=== PATIENT | female | born 1960 | race Caucasian/White ===

== ENCOUNTER 2021-10-13 20:27 | Inpatient (IN) | payer OTHER, SELFPAY ==
[~2021-10-13] VITALS: Ht 160 cm; Wt 93.4 kg
[2021-10-13 20:27] VITALS: BP_SYST 96
[2021-10-13] MEDS ORDERED: ONDANSETRON HCL 4 MG/2 ML VIAL IVP ONE (21:00)
[2021-10-13] MEDS ORDERED: NACL 0.9% 2,000 ML IV ONE (21:00)
[2021-10-13 22:21] LABS: BASOPHILS % (AUTO) 0.1 % (0.0-2.0); EOSINOPHILS % (AUTO) 0.1 % (0.0-4.0); HEMATOCRIT 41.3 % (36-48); HEMOGLOBIN 14.4 g/dL (12.0-16.0); LYMPHOCYTES # (AUTO) 0.5 K/uL (1.0-5.5); LYMPHOCYTES % (AUTO) 6.5 % (20.5-51.5); MEAN CORPUSCULAR HEMOGLOBIN 33 pg (27-31); MEAN CORPUSCULAR HGB CONC 35 % (32-36); MEAN CORPUSCULAR VOLUME 93 fL (79.0-98.0); MONOCYTES # (AUTO) 0.4 K/uL (0.0-1.0); MONOCYTES % (AUTO) 4.6 % (1.7-9.3); NEUTROPHILS # (AUTO) 7.2 K/uL (1.8-7.7); NEUTROPHILS % (AUTO) 88.7 % (40.0-70.0); PLATELET COUNT (AUTO) 185 K/uL (130-430); RED BLOOD CELL COUNT(AUTO) 4.43 MIL/uL (4.2-6.2); RED CELL DISTRIBUTION WIDTH 13.5 % (9.0-15.0); WHITE BLOOD COUNT (AUTO) 8.1 K/uL (4.8-10.8)
[2021-10-13 22:32] LABS: PROTHROMBIN TIME 10.6 SECS (9.5-12.5)
[2021-10-13 22:33] LABS: ANION GAP 8 (5-15); CALCIUM 8.4 mg/dL (8.4-11.0); CHLORIDE 104 mmol/L (98-107); GLUCOSE 141 mg/dL (70-99); POTASSIUM 3.1 mmol/L (3.5-5.1); SODIUM SERUM 138 mmol/L (136-145); UREA NITROGEN, BLOOD 32 mg/dL (8-21)
[2021-10-13 22:38] LABS: ALANINE AMINOTRANSFERASE 99 U/L (12-78); ALBUMIN 2.8 g/dL (3.4-4.8); ASPARTATE AMINOTRANSFERASE 94 U/L (10-37); TOTAL BILIRUBIN 0.4 mg/dL (0.0-1.0)
[2021-10-13 22:42] LABS: ALCOHOL, BLOOD < 3 mg/dL (<10); GFR AFRICAN AMERICAN 65 mL/min (>90)
[2021-10-13] MEDS ORDERED: IPRATROPIUM/ALBUTEROL SULFATE 3 ML AMPUL.NEB (DUONEB) INH ONE (23:45)
--- NOTE | 2021-10-14 00:41 | NUR ---
Patient moved to bed 8 for evaluation
--- NOTE | 2021-10-14 01:20 | NUR ---
Waiting to be seen by .c/o being hungry and not eating waiting outside with the ambulance team.Lunch box provided/tolerated well.ERMD informed.
[2021-10-14] MEDS ORDERED: NACL 0.9% 1,000 ML IV ONE ×2 (01:30→03:45)
[2021-10-14] MEDS ORDERED: cefTRIAXone 1 GM IVPB PREMIX 50 ML IV ONE (01:30)
[2021-10-14] MEDS ORDERED: AZITHROMYCIN 500 MG in NS 250 ML IV ONE (01:30)
[2021-10-14] MEDS ORDERED: DEXAMETHASONE SOD PHOSPHATE 10 MG/ML VIAL IVP ONE (01:30)
[2021-10-14 01:35] LABS: C-REACTIVE PROTEIN QUANT 11.1 mg/dL (0-0.5)
--- NOTE | 2021-10-14 02:00 | NUR ---
Seen and examined by with orders/carried out.
[2021-10-14 02:33] LABS: FIBRINOGEN 646 mg/dL (200-400)
[2021-10-14] MEDS ORDERED: AZITHROMYCIN 500 MG/VIAL (ZITHROMAX) IV ONE (03:45)
[2021-10-14] MEDS ORDERED: DEXAMETHASONE SOD PHOSPHATE 10 MG/ML VIAL ONE (04:41)
[2021-10-14] MEDS ORDERED: ONDANSETRON HCL 4 MG/2 ML VIAL ONE (04:41)
[2021-10-14 07:03] LABS: BARBITURATE, URINE NEGATIVE (NEG <=200); BENZODIAZEPINE, URINE NEGATIVE (NEG <=150); CANNABINOID, URINE NEGATIVE (NEG <=50); COCAINE, URINE NEGATIVE (NEG <=150); METHAMPHETAMINES SCREEN,URINE NEGATIVE (NEG <=500); OPIATE, URINE NEGATIVE (NEG <=100); PHENCYCLIDINE SCREEN,URINE NEGATIVE (NEG <=25); UR TRICYCLIC ANTIDEPRESSANTS POSITIVE (NEG <=300); URINE AMPHETAMINE NEGATIVE (NEG <=500); URINE METHADONE NEGATIVE (NEG <=200); URINE OXYCODONE SCREEN NEGATIVE (NEG <=100); URINE PROPOXYPHENE SCREEN NEGATIVE (NEG <=300)
--- NOTE | 2021-10-14 07:15 | NUR ---
REPORT RECIEIVED FROM CHILD CAREGIVER RN. PT IS RESTING IN BED, EASILY ARROUSABLE TO VOICE, NO DISTRESS NOTED, V/S STABLE
--- NOTE | 2021-10-14 07:20 | NUR ---
EMAR REVIEWED AND SOME MEDICATIONS WERE NOT DOCUMENTED. PER PREVIOUS RN, ALL MEDS WERE GIVEN.
--- NOTE | 2021-10-14 08:45 | NUR ---
Upon review of pts charts/ meds given were noted not charted.Pharmacy with instructions to chart on pts profile.
--- NOTE | 2021-10-14 09:02 | NUR ---
BREAKFAST TRAY PROVIDED TO PT
--- NOTE | 2021-10-14 09:30 | NUR ---
PT 02 SAT DOWN TO 89%, PT PLACED ON NC@ 2LPM, 02 INCREASED TO 94%
--- NOTE | 2021-10-14 09:45 | NUR ---
Medication reconciliation completed with information provided by PATIENT. Any prior medication reconciliation on file was reviewed and corrected.
[2021-10-14] MEDS ORDERED: ALBMDI INH (10:00)
[2021-10-14] MEDS ORDERED: LORazepam 2 MG/ML VIAL IVP PRN (11:00)
[2021-10-14] MEDS ORDERED: ALBUTEROL MDI INHALATION 8 GM INH INH PRN (11:00)
[2021-10-14] MEDS ORDERED: ONDANSETRON HCL 4 MG/2 ML VIAL IVP PRN (11:00)
[2021-10-14] MEDS ORDERED: HYDROcodone/ACETAMIN 5-325 MG TAB (NORCO/ VICODIN) PO PRN (11:00)
[2021-10-14] MEDS ORDERED: ACETAMINOPHEN 325 MG TABLET PO PRN (11:00)
[2021-10-14] MEDS ORDERED: HYDROcodone/ACETAMIN 10-325 MG TAB PO PRN (11:00)
[2021-10-14] MEDS ORDERED: NALOXONE HCL 0.4 MG/ML AMP (NARCAN) IVP PRN ×2 (11:00)
--- NOTE | 2021-10-14 11:00 | NUR ---
CONSULTATION PAGED/CALLED Reason for Consultation: [] SYNCOPE Person Who was Notified: [] DEBORA Consulting Physician: [] Rich CONNELLY Manager Financial Services Specialty: [] NEURO Ordering Physician: [] DR POOLE
--- NOTE | 2021-10-14 11:03 | NUR ---
CARDIOLOGY CONSULT Mendoza BERMEO IS AWARE OF THE CONSULT RE: SEPSIS.
--- NOTE | 2021-10-14 11:15 | NUR ---
Patient will be admitted to care of DR. POOLE. Admitted to TELE unit. Will go to room 118B. Belongings list completed. Complete and up to date summary report printed. SBAR report to be given at bedside with opportunity for questions.
[2021-10-14 11:30] VITALS: BP_SYST 147
--- NOTE | 2021-10-14 11:30 | NUR ---
ADMISSION NOTE Received patient from ER via gurney. Patient admitted with diagnosis of sepsis, Covid. Patient is awake, alert, oriented X 4. Patient oriented to hospital room, call light, toileting, pain management and safety-teach back done. Patient informed that I will be her nurse and that their room number is 118B. Personal belongings checked and Belongings List documented. Call light within reach.
--- NOTE | 2021-10-14 12:30 | NUR ---
CONSULTATION PAGED/CALLED Reason for Consultation: [] COVID Person Who was Notified: [] SABINA Consulting Physician: [] DR KALIN KUNZ Debt Counselor Specialty: [] ID Ordering Physician: [] DR POOLE
--- NOTE | 2021-10-14 12:33 | NUR ---
CONSULTATION PAGED/CALLED Reason for Consultation: [] COVID; RESP FAIL Person Who was Notified: [] ROMELIA Consulting Physician: [] DR HENDERSON Jig Hand Specialty: [] PULMO Ordering Physician: [] DR POOLE
[2021-10-14] MEDS ORDERED: ENOXAPARIN SODIUM 40 MG/0.4 ML SYRINGE SUBCUT ONE (12:45)
[2021-10-14] MEDS ORDERED: METHYLPREDNISOLONE SOD SUCC 40 MG/ML VIAL IVP ONE (12:45)
[2021-10-14 12:55] VITALS: BP_SYST 130
--- NOTE | 2021-10-14 13:11 | NUR ---
Spoke w/ [facility] at [facility] [phone]. They will transfer patient to contracted hospital when bed is available. She will call with up dates on possible transfer.
[2021-10-14] MEDS ORDERED: IPRATROPIUM BROM 0.5 MG/2.5 ML VIAL.NEB (ATROVENT) INH SCH (15:00)
[2021-10-14] MEDS ORDERED: ALBUTEROL SULFATE 0.083% 2.5 MG/3 ML VIAL.NEB INH SCH (15:00)
[2021-10-14] MEDS: cefTRIAXone 1 GM IVPB PREMIX 50 ML IV SCH (17:41)
[2021-10-14] MEDS: AZITHROMYCIN 500 MG in NS 250 ML IV SCH (17:42)
[2021-10-14] MEDS: D5/0.45 NS 1,000 ML IV SCH ×2 (18:06→21:00)
--- NOTE | 2021-10-14 19:00 | NUR ---
Closing notes: Pt A/Ox4, resting in bed. VVS, no s/s of respiratory distress, IV fluids running at ordered rate to RAC, L hand is SL. Pt ambulates to bathroom. Fall, safety, and isolation precautions in place, call light within reach, will endorse to shift supervisor melting.
[2021-10-14] MEDS: METHYLPREDNISOLONE SOD SUCC 40 MG/ML VIAL IVP SCH (23:33)
[2021-10-15 00:03] VITALS: BP_SYST 151
[2021-10-15] MEDS: D5/0.45 NS 1,000 ML IV SCH ×2 (05:59→18:07)
[2021-10-15 08:00] VITALS: BP_SYST 145
--- NOTE | 2021-10-15 08:00 | NUR ---
Opening Notes: Pt A/Ox4, resting in bed. VVS, no s/s of respiratory distress, IV fluids running at ordered rate to RAC, L hand is SL. Pt ambulates to bathroom. Fall, safety, and isolation precautions in place, call light within reach, will continue to monitor.
[2021-10-15 08:28] LABS: BASOPHILS % (AUTO) 0.2 % (0.0-2.0); EOSINOPHILS % (AUTO) 0.1 % (0.0-4.0); HEMOGLOBIN 13.2 g/dL (12.0-16.0); LYMPHOCYTES # (AUTO) 1.5 K/uL (1.0-5.5); MEAN CORPUSCULAR HEMOGLOBIN 32 pg (27-31); MEAN CORPUSCULAR HGB CONC 34 % (32-36); MEAN CORPUSCULAR VOLUME 94 fL (79.0-98.0); MONOCYTES # (AUTO) 0.8 K/uL (0.0-1.0); MONOCYTES % (AUTO) 7.4 % (1.7-9.3); NEUTROPHILS # (AUTO) 8.9 K/uL (1.8-7.7); NEUTROPHILS % (AUTO) 79.3 % (40.0-70.0); PLATELET COUNT (AUTO) 262 K/uL (130-430); RED BLOOD CELL COUNT(AUTO) 4.16 MIL/uL (4.2-6.2); RED CELL DISTRIBUTION WIDTH 13.3 % (9.0-15.0); WHITE BLOOD COUNT (AUTO) 11.3 K/uL (4.8-10.8)
[2021-10-15 08:34] LABS: ALBUMIN 2.7 g/dL (3.4-4.8); CALCIUM 8.4 mg/dL (8.4-11.0); CREATININE 0.55 mg/dL (0.55-1.30); POTASSIUM 3.9 mmol/L (3.5-5.1); TOTAL BILIRUBIN 0.3 mg/dL (0.0-1.0)
[2021-10-15] MEDS: ENOXAPARIN SODIUM 40 MG/0.4 ML SYRINGE SUBCUT SCH (09:00)
[2021-10-15] MEDS: METHYLPREDNISOLONE SOD SUCC 40 MG/ML VIAL IVP SCH ×2 (09:00→21:37)
[2021-10-15] MEDS ORDERED: OXCA600T5 PO (09:03)
[2021-10-15] MEDS ORDERED: DEC4 PO (09:03)
[2021-10-15] MEDS ORDERED: ZIT250 PO (09:04)
[2021-10-15] MEDS ORDERED: QUET400T PO (09:06)
[2021-10-15] MEDS ORDERED: LEVO75TA7 PO (09:07)
[2021-10-15] MEDS ORDERED: CELE200C PO (09:13)
[2021-10-15] MEDS ORDERED: LIP80 PO (09:14)
[2021-10-15] MEDS ORDERED: ALBUTEROL MDI INHALATION 8 GM INH INH PRN (09:45)
[2021-10-15] MEDS ORDERED: HYDROCHLOROTHIAZIDE 25 MG TABLET (HCTZ) PO ONE (09:45)
[2021-10-15] MEDS: AZITHROMYCIN 500 MG in NS 250 ML IV SCH (14:45)
[2021-10-15] MEDS: cefTRIAXone 1 GM IVPB PREMIX 50 ML IV SCH (14:45)
--- NOTE | 2021-10-15 17:05 | NUR ---
High BP: Page Dr. Motta for pt BP (158/102), ordered Clonidine 0.1mg PO Q6 PRN SBP over 150.
[2021-10-15] MEDS ORDERED: cloNIDine HCL 0.1 MG TABLET PO PRN (17:15)
--- NOTE | 2021-10-15 19:00 | NUR ---
Closing notes: Pt A/Ox4, resting in bed. VVS, no s/s of respiratory distress, IV fluids running at ordered rate to L hand, RAC is SL. Pt ambulates to bathroom. Fall, safety, and isolation precautions in place, call light within reach, will endorse to night coordinator.
[2021-10-15 21:00] VITALS: BP_SYST 143
[2021-10-16 00:43] VITALS: BP_SYST 133
[2021-10-16] MEDS: D5/0.45 NS 1,000 ML IV SCH ×2 (03:00→06:12)
[2021-10-16 07:38] LABS: BASOPHILS % (AUTO) 0.3 % (0.0-2.0); EOSINOPHILS % (AUTO) 0.4 % (0.0-4.0); HEMATOCRIT 40.4 % (36-48); HEMOGLOBIN 14.2 g/dL (12.0-16.0); LYMPHOCYTES # (AUTO) 1.2 K/uL (1.0-5.5); LYMPHOCYTES % (AUTO) 13.1 % (20.5-51.5); MEAN CORPUSCULAR HEMOGLOBIN 32 pg (27-31); MEAN CORPUSCULAR HGB CONC 35 % (32-36); MEAN CORPUSCULAR VOLUME 91 fL (79.0-98.0); MONOCYTES # (AUTO) 1.1 K/uL (0.0-1.0); MONOCYTES % (AUTO) 11.5 % (1.7-9.3); NEUTROPHILS % (AUTO) 74.7 % (40.0-70.0); PLATELET COUNT (AUTO) 301 K/uL (130-430); RED BLOOD CELL COUNT(AUTO) 4.43 MIL/uL (4.2-6.2); RED CELL DISTRIBUTION WIDTH 13.1 % (9.0-15.0); WHITE BLOOD COUNT (AUTO) 9.4 K/uL (4.8-10.8)
[2021-10-16 08:00] VITALS: BP_SYST 134
--- NOTE | 2021-10-16 08:00 | NUR ---
NOTES PATIENT AAOX 4. LUNGS BILATERALLY CLEAR. NO OXYGEN NOTED. OBESE. ABDOMEN SOFT AND NON DISTENDED. AMBULATES TO THE BATHROOM. VITALS SIGNS STABLE. AFEBRILE. CALL LIGHTS WITHIN REACH. BED LOW POSITION, ALARMED AND LOCKED. WILL CONTINUE TO MONITOR PATIENTS STATUS.
[2021-10-16 08:03] LABS: ALBUMIN 2.9 g/dL (3.4-4.8); C-REACTIVE PROTEIN QUANT 3.2 mg/dL (0-0.5); CALCIUM 8.8 mg/dL (8.4-11.0); CREATININE 0.62 mg/dL (0.55-1.30); TOTAL BILIRUBIN 0.5 mg/dL (0.0-1.0)
[2021-10-16 08:57] LABS: ERYTHROCYTE SEDIMENTATION RATE 69 MM/HR (0-20)
--- NOTE | 2021-10-16 10:00 | NUR ---
ALL DUE MEDS GIVEN. IV ACCESS RT HAND OK. RT AC INFILTRATED.
[2021-10-16] MEDS: METHYLPREDNISOLONE SOD SUCC 40 MG/ML VIAL IVP SCH ×2 (10:14→21:20)
[2021-10-16] MEDS: ENOXAPARIN SODIUM 40 MG/0.4 ML SYRINGE SUBCUT SCH (10:15)
[2021-10-16] MEDS ORDERED: POTASSIUM CHLORIDE 20 MEQ TAB.PRT.SR PO ONE ×2 (10:15→11:45)
[2021-10-16] MEDS: HYDROCHLOROTHIAZIDE 25 MG TABLET (HCTZ) PO SCH (10:22)
[2021-10-16 12:00] VITALS: BP_SYST 138
[2021-10-16] MEDS: cefTRIAXone 1 GM IVPB PREMIX 50 ML IV SCH (12:50)
[2021-10-16] MEDS: AZITHROMYCIN 500 MG in NS 250 ML IV SCH (13:30)
[2021-10-16] MEDS: NORMAL SALINE 5 ML DISP.SYRIN IVF SCH ×2 (14:00→21:20)
--- NOTE | 2021-10-16 16:04 | NUR ---
BENITEZ INSERTED A NEW IV RT HAND #22.
[2021-10-16 16:39] VITALS: BP_SYST 136
[2021-10-16 20:00] VITALS: BP_SYST 128
--- NOTE | 2021-10-16 20:32 | NUR ---
PAGED DR. POOLE ABOUT SEROQUEL 400MG PO QHS Patient states they take seroquel 400mg PO QHS for sleep. Medication has not been reconciled yet. Paged Dr. Poole about medication - orders continuation fo medication.
[2021-10-16] MEDS ORDERED: QUEtiapine FUMARATE 100 MG TABLET PO SCH (21:00)
[2021-10-17] VITALS: BP_SYST 131
--- NOTE | 2021-10-17 | NUR ---
ROUNDING NOTES Patient resting in bed - no s/s pain or distress noted. Respirations even and unlabored - head of bed elevated. IV site patent - no s/s redness, infection, or infiltration. Bed locked and in lowest position. Call light within reach.
[2021-10-17 00:58] VITALS: BP_SYST 142
[2021-10-17] MEDS: NORMAL SALINE 5 ML DISP.SYRIN IVF SCH ×2 (06:47→13:41)
[2021-10-17 08:00] VITALS: BP_SYST 146
[2021-10-17] MEDS: HYDROCHLOROTHIAZIDE 25 MG TABLET (HCTZ) PO SCH (08:46)
[2021-10-17] MEDS: METHYLPREDNISOLONE SOD SUCC 40 MG/ML VIAL IVP SCH (08:46)
[2021-10-17] MEDS: ENOXAPARIN SODIUM 40 MG/0.4 ML SYRINGE SUBCUT SCH (08:53)
[2021-10-17 09:11] LABS: BASOPHILS % (AUTO) 0.4 % (0.0-2.0); EOSINOPHILS # (AUTO) 0.1 K/uL (0.0-0.4); EOSINOPHILS % (AUTO) 0.7 % (0.0-4.0); HEMATOCRIT 42.6 % (36-48); HEMOGLOBIN 14.8 g/dL (12.0-16.0); LYMPHOCYTES % (AUTO) 21.9 % (20.5-51.5); MEAN CORPUSCULAR HEMOGLOBIN 32 pg (27-31); MEAN CORPUSCULAR HGB CONC 35 % (32-36); MEAN CORPUSCULAR VOLUME 91 fL (79.0-98.0); MONOCYTES % (AUTO) 10.9 % (1.7-9.3); NEUTROPHILS # (AUTO) 6.1 K/uL (1.8-7.7); NEUTROPHILS % (AUTO) 66.1 % (40.0-70.0); PLATELET COUNT (AUTO) 354 K/uL (130-430); RED BLOOD CELL COUNT(AUTO) 4.67 MIL/uL (4.2-6.2); RED CELL DISTRIBUTION WIDTH 13.3 % (9.0-15.0); WHITE BLOOD COUNT (AUTO) 9.2 K/uL (4.8-10.8)
[2021-10-17 09:40] LABS: CALCIUM 9.1 mg/dL (8.4-11.0); CREATININE 0.6 mg/dL (0.55-1.30); POTASSIUM 3.5 mmol/L (3.5-5.1); TOTAL BILIRUBIN 0.5 mg/dL (0.0-1.0)
[2021-10-17 10:10] LABS: ERYTHROCYTE SEDIMENTATION RATE 69 MM/HR (0-20)
[2021-10-17] MEDS ORDERED: HCT25 PO (11:14)
[2021-10-17 12:00] VITALS: BP_SYST 136
[2021-10-17] MEDS: AZITHROMYCIN 500 MG in NS 250 ML IV SCH (13:41)
[2021-10-17] MEDS: cefTRIAXone 1 GM IVPB PREMIX 50 ML IV SCH (13:41)
[2021-10-17 14:15] VITALS: BP_SYST 136
--- NOTE | 2021-10-17 16:30 | NUR ---
patient already refused remdesivir dose due at 1700 and said she wanted to go home already.
== END 2021-10-17 17:00 | disposition home or self-care (01) | DRG 871 ==
LOC: SED 20:27 → STU 10-14 04:27 → SMU 10-16 12:04
PROVIDERS: ADMIT Preventive Medicine Preventive Medicine/Occupational Environmental Medicine; ATTEND Preventive Medicine Preventive Medicine/Occupational Environmental Medicine
PROC: XW033E5 Introduction of Remdesivir Anti-infective into Peripheral Vein, Percutaneous Approach, New Technology Group 5 (ICD-10-PCS; principal; 2021-10-15)
DX: A41.9 Sepsis, unspecified organism (principal); U07.1 COVID-19; J12.82 Pneumonia due to coronavirus disease 2019; J96.01 Acute respiratory failure with hypoxia; J44.0 Chronic obstructive pulmonary disease with (acute) lower respiratory infection; J44.1 Chronic obstructive pulmonary disease with (acute) exacerbation; I95.1 Orthostatic hypotension; E03.9 Hypothyroidism, unspecified; E78.5 Hyperlipidemia, unspecified; E86.0 Dehydration; E87.6 Hypokalemia; E66.9 Obesity, unspecified; R73.9 Hyperglycemia, unspecified; R74.01 Elevation of levels of liver transaminase levels; E88.09 Other disorders of plasma-protein metabolism, not elsewhere classified; F17.200 Nicotine dependence, unspecified, uncomplicated; Z60.2 Problems related to living alone; S00.93XA Contusion of unspecified part of head, initial encounter; W18.39XA Other fall on same level, initial encounter; E78.1 Pure hyperglyceridemia; I10 Essential (primary) hypertension; F99 Mental disorder, not otherwise specified; Z79.01 Long term (current) use of anticoagulants; Z85.819 Personal history of malignant neoplasm of unspecified site of lip, oral cavity, and pharynx; Z90.49 Acquired absence of other specified parts of digestive tract; Z90.710 Acquired absence of both cervix and uterus; Z68.36 Body mass index [BMI] 36.0-36.9, adult; Z79.899 Other long term (current) drug therapy; Y93.89 Activity, other specified; Y92.89 Other specified places as the place of occurrence of the external cause; Y99.8 Other external cause status; Z90.02 Acquired absence of larynx
CPT/HCPCS: 36415; 36600; 70450-TC; 71045; 76376; 80053; 80307; 82803-TC; 83605; 83615; 83735; 83880; 84100; 84484; 85025; 85379; 85384; 85610-TC; 85651-TC; 85730-TC; 86140; 87040; 93005; 93306; 93880; 95816; 96374; 96375; 99291; G0378; G0482; J0456; J0696; J1030; J1100; J1650; J2405; J7050